=== PATIENT | female | born 1950 | race Caucasian/White ===

== ENCOUNTER → 2016-10-12 | Outpatient (CLI) | payer OTHER ==
[~2016-10-12] MED LIST: FLEXERIL PO; JANUVIA PO; VICODIN 5/500 T1 TAB PO
--- NOTE | ~2016-10-12 | US98 ---
[facility] A Service of [facility] & [facility] RADIOLOGY TEXT RESULTS PATIENT: BARTOLOME PINEDA LOCATION: [facility] : 54 UNIT #: [id number] AGE: [address]: Lukasz Hoyt MD SEX: F ORDER DR: [id number] [facility] [address] [place], [place] [address] [id number] O MR#: [id number] Acc #: [id number] NAME: BARTOLOME PINEDA : 1950 SEX: F STUDY DATE/TIME: 10/12/2016 11:26 UNIT: [facility] ROOM: STUDY DESCRIPTION: US Pelvic Non-OB Complete Attending Physician: Lukasz Hoyt M.D. Ordering Physician: Lukasz Hoyt M.D. Primary Care Physician: Lukasz Hoyt M.D. MEDICAL IMAGING REPORT This report is preliminary unless electronic signature is present EXAM Pelvic ultrasound transabdominal and endovaginal HISTORY Soft tissue noted posterior to the urinary bladder on outside MRI lumbar spine performed for low back pain. Ultrasound recommended for further evaluation. FINDINGS Ultrasound examination of the pelvis was performed with transabdominal and endovaginal technique for improved visualization of the uterus and adnexa. The uterus is atrophic, and measures 4.5 cm in length, 1.8 cm in AP dimension and 3.6 mm in transverse dimension. No endometrial thickening or endometrial fluid. The endometrium measures approximately 2 mm in thickness. No free fluid. There are two small uterine fibroids, 1 in the lower uterus measuring 10 mm and 1 in the right posterior uterine fundus measuring 12 mm. Neither ovary is identified. No free fluid. The right and left adnexa are partly obscured by bowel gas. IMPRESSION 1. Uterus is atrophic and contains 2 small fibroids measuring 10 mm and 12 mm. 2. No endometrial thickening or endometrial fluid. 3. No free fluid in the pelvis. 4. Neither ovary is identified. The adnexa are partly obscured by bowel gas. Dictated by... Richie Lauren M.D. THIS IS AN ELECTRONICALLY VERIFIED REPORT Richie Lauren M.D. at 10/14/2016 11:19 PM [facility]. [facility] A Service of [facility] & [facility] RADIOLOGY TEXT RESULTS PATIENT: BARTOLOME PINEDA LOCATION: [facility] : 54 UNIT #: [id number] AGE: [address]: Lukasz Hoyt MD SEX: F ORDER DR: DINO/francia TD: 10/14/2016 04:30 JOB #: [id number] MEDICAL IMAGING REPORT Page 1 of 1 COPY
== END | disposition home or self-care (01) ==
LOC: CWCC 11:07
DX: M54.5 Low back pain (principal); N85.8 Other specified noninflammatory disorders of uterus; D25.9 Leiomyoma of uterus, unspecified
CPT/HCPCS: 76830; 76856